=== PATIENT | female | born 1985 | race Caucasian/White ===

== ENCOUNTER 2018-08-17 13:21 | Emergency (ER) | payer BC ==
--- NOTE | 2018-08-17 13:53 | UC ---
General HPI - HPI Summary HPI Summary: 33 yo patient c/o elevation in BP for several months. Was given amlodipine 5mg daily by PCP in January and she took it for a month and kept a BP log but states medication did not decrease her BP significantly. She also states she has been getting dizziness when BP is elevated. She has been under stress and had hx of GERD with pregnancies, and is experiencing similar pains heartburn and sharp intermittent pains regardless of physical activity "under left boob". Patient denies SOB CP on exertion, n/v/d. - History of Current Complaint Stated Complaint: HIGH BLOOD PRESSURE, AND DIZZINESS Time Seen by Provider: 08/17/18 13:33 Hx Obtained From: Patient Hx Last Menstrual Period: unknown Onset/Duration: Gradual Onset, Lasting Weeks Onset Severity: Mild Current Severity: None - Allergy/Home Medications Allergies/Adverse Reactions: Allergies Allergy/AdvReac Type Severity Reaction Status Date / Time MS Codeine [Codeine] Allergy Severe Hives Verified 08/17/18 13:48 Home Medications: Home Medications Ibuprofen [Advil Migraine] 200 mg PO 08/17/18 [History] PMH/Surg Hx/FS Hx/Imm Hx Cardiovascular History: Hypertension - Surgical History Surgical History: Yes Surgery Procedure, Year, and Place: - Family History Known Family History: Positive: Hypertension - Social History Substance Use Type: None - Immunization History Most Recent Influenza Vaccination: 2011 Review of Systems All Other Systems Reviewed And Are Negative: Yes Gastrointestinal: Positive: Abdominal Pain Neurological: Positive: Other - dizzy Physical Exam Triage Information Reviewed: Yes Appearance: Well-Appearing, No Pain Distress, Well-Nourished Vital Signs Reviewed: Yes Eyes: Positive: Conjunctiva Clear ENT: Positive: Normal ENT inspection, Hearing grossly normal, Pharynx normal Neck: Positive: Supple, Nontender, No Lymphadenopathy Respiratory: Positive: Chest non-tender, Lungs clear, Normal breath sounds Cardiovascular: Positive: RRR, No Murmur, Pulses Normal, Brisk Capillary Refill Abdomen Description: Positive: Nontender, Soft Bowel Sounds: Positive: Present Musculoskeletal: Positive: Strength Intact, ROM Intact, No Edema Neurological: Positive: Alert, Muscle Tone Normal Psychological Exam: Normal Skin Exam: Normal Course/Dx - Course Course Of Treatment: 33 yo patient c/o elevated BP , EKG is NSR, History of GERD with recurrence, start prilosec for 14 days and start verapamil er 180mg po daily. F/u with PCP to continue monitoring BP - Differential Dx - Multi-Symptom Provider Diagnoses: GERD. HTN Discharge - Sign-Out/Discharge Documenting (check all that apply): Patient Departure All imaging exams completed and their final reports reviewed: Yes - Discharge Plan Condition: Stable Disposition: HOME Prescriptions: Verapamil HCl [Verapamil ER] 180 mg PO DAILY #30 tablet.er Verapamil HCl [Verapamil ER] 180 mg PO DAILY #30 tablet.er Verapamil HCl [Verapamil ER] 180 mg PO DAILY #30 tablet.er Patient Education Materials: Verapamil (By mouth), Gastroesophageal Reflux Disease in Children (ED), Chronic Hypertension (ED) Referrals: Non Staff,Doctor [Medical Doctor] - - Billing Disposition and Condition Condition: STABLE Disposition: Home
[2018-08-17] MEDS ORDERED: Al Hydrox/Mg Hydrox/Simet LIQ* 30 ML UDC PO ONE (14:42)
[2018-08-17 15:20] VITALS: BP 129/97
== END 2018-08-17 15:10 | disposition home or self-care (01) ==
LOC: UCEAST 13:21
DX: I10 Essential (primary) hypertension (principal); K21.9 Gastro-esophageal reflux disease without esophagitis; Z88.5 Allergy status to narcotic agent
CPT/HCPCS: 93005; 99212; A9270-GY; G0463

== ENCOUNTER 2019-06-29 16:40 | Emergency (ER) | payer BC, OTHER ==
--- NOTE | 2019-06-29 17:06 | UC ---
Dental HPI - HPI Summary HPI Summary: 34 yo female presents with dental pain. She tells me that she knows she has bad teeth and 3 days ago she further broke her left upper tooth. Since that time has had pain and swelling to the area. She called her dentist and they scheduled her an appointment for , but recommended she come here to get placed on antibiotics. Pt is able to eat and drink, but has significant pain. She has been taking tylenol and ibuprofen with good relief. Denies fever or chills. - History of Current Complaint Chief Complaint: UCDentalProblem Stated Complaint: TOOTH ACHE Time Seen by Provider: 06/29/19 17:05 Hx Obtained From: Patient Hx Last Menstrual Period: unknown Onset/Duration: Gradual Onset Severity: Moderate Pain Intensity: 5 Pain Scale Used: 0-10 Numeric - Allergies/Home Medications Allergies/Adverse Reactions: Allergies Allergy/AdvReac Type Severity Reaction Status Date / Time codeine Allergy Hives Verified 06/29/19 17:10 PMH/Surg Hx/FS Hx/Imm Hx Neurological History: Other - headaches - Surgical History Surgical History: Yes Surgery Procedure, Year, and Place: - Family History Known Family History: Positive: Hypertension - Social History Lives: With Family Alcohol Use: Occasionally Substance Use Type: None Smoking Status (MU): Light Every Day Tobacco Smoker - Immunization History Most Recent Influenza Vaccination: 2011 Review of Systems All Other Systems Reviewed And Are Negative: No Constitutional: Positive: Negative Skin: Positive: Negative Eyes: Positive: Negative ENT: Positive: Dental Pain Respiratory: Positive: Negative Cardiovascular: Positive: Negative Neurological: Positive: Negative Psychological: Positive: Negative Physical Exam - Summary Physical Exam Summary: GENERAL: NAD. WDWN. No pain distress. SKIN: No rashes, sores, lesions, or open wounds. HEENT: Head: AT/NC Nose: Nasal mucosa pink and moist. NTTP maxillary and frontal sinus. Throat: Posterior oropharynx without exudates, erythema, or tonsillar enlargement. Uvula midline. NECK: Supple. Nontender. No lymphadenopathy. CHEST: No accessory muscle use. Breathing comfortably and in no distress. CV: Pulses intact. Cap refill <2seconds NEURO: Alert. PSYCH: Age appropriate behavior. Triage Information Reviewed: Yes Vital Signs: Vital Signs: Temp Pulse Resp BP Pulse Ox 98.6 F 62 18 158/95 99 06/29/19 17:05 06/29/19 17:05 06/29/19 17:05 06/29/19 17:05 06/29/19 17:05 Vital Signs Reviewed: Yes Dental: Positive: Percussion Tenderness @ - Tooth #15, Gross Decay/Caries @ - throughout, Dental Fracture @ - Tooth #15, Abscess @ - Tooth #15, Cellulitis @ - Tooth #15. Negative: Cervical Lymphadenopathy, Bleeding Dental Complaint Course/Dx - Course Course Of Treatment: Tooth #15 abscess - Differential Dx/Diagnosis Provider Diagnosis: Tooth abscess Discharge ED - Sign-Out/Discharge Documenting (check all that apply): Patient Departure All imaging exams completed and their final reports reviewed: No Studies - Discharge Plan Condition: Stable Disposition: HOME Prescriptions: Amoxicillin PO (*) [Amoxicillin 500 MG CAP*] 500 mg PO Q12H #14 cap Lidocaine 2% VISCOUS* [Xylocaine 2% Viscous*] 15 ml SWISH SPIT Q4H #250 ml Patient Education Materials: Dental Abscess (ED) Referrals: No Primary Care Phys,NOPCP [Primary Care Provider] - Additional Instructions: If you develop a fever, shortness of breath, chest pain, new or worsening symptoms - please call your PCP or go to the ED immediately. Your blood pressure was high at todays visit. Please see your primary provider within 4 weeks for recheck and re-evaluation. Please keep the appointment with your dentist for for further treatment of your tooth - Billing Disposition and Condition Condition: STABLE Disposition: Home
[2019-06-29 17:09] VITALS: BP 158/95
== END 2019-06-29 17:23 | disposition home or self-care (01) ==
LOC: UCEAST 16:40
DX: K04.7 Periapical abscess without sinus (principal); F17.210 Nicotine dependence, cigarettes, uncomplicated; Z88.5 Allergy status to narcotic agent
CPT/HCPCS: 99212; G0463